=== PATIENT | female | born 1990 | race Caucasian/White ===

== ENCOUNTER → 2017-09-29 15:14 | Observation (INO) ==
--- NOTE | 2017-09-29 14:18 | OB/GYN Progress Note ---
Date of Encounter: 09/29/17 Time of Encounter: 14:49 - Assessment and Plan (1) 34 weeks gestation of Current Visit: Yes Status: Acute (2) Fall from chair Current Visit: Yes Status: Acute Pt reports good FM. No leaking, bleeding, or contractions. NST reactive >4 hours s/p fall. Precautions given. Discharge home. Qualifiers: Encounter type: initial encounter Qualified Code(s): W07.XXXA - Fall from chair, initial encounter Subjective - Subjective Principal diagnosis: fall during Interval history: Patient is a 27 y/o female at 34+4 weeks presented to L&D for a fall during . is uncomplicated. Patient previously followed by Dr. Merino and currently followed by the midwives. She reports she fell out of a chair at about 1030 this am and landed on her right hip. During the fall she tried to catch herself by grabbing a desk and caused the desk to fall on her. She reports that she caught the desk before it hit her. Currently she has some discomfort at her tailbone. No contractions, leaking, or bleeding. PNL: Blood type A+, RPR neg, RNI, HBsAg neg, HIV neg, Antepartum ROS: movement normal, no loss of fluid, no vaginal bleeding, no contractions Objective - Vital Signs Vital Signs: Intake and Output 09/28/17 09/29/17 09/29/17 23:59 07:59 15:59 Other: Weight 59.6 kg Patient Weight 09/29/17 23:59 Weight 59.6 kg - Exam FHR: category 1 FHR comments: FHR baseline = 130, Accelerations present, NST reactive Auscultation: bilateral: normal Abdomen: Present: soft, gravid Uterus: Present: normal
[2017-09-29 14:59] LABS: Amphetamine Screen,Urine Negative ng/mL (Cutoff=1000); Barbiturate Screen,Urine Negative ng/mL (Cutoff=200); Benzodiazepines Screen,Urine Negative ng/mL (Cutoff=200); Cannabinoid Screen,Urine Negative ng/mL (Cutoff = 50); Cocaine Screen,Urine Negative ng/mL (Cutoff= 300); Opiate Screen,Urine Negative ng/mL (Cutoff=300); Phencyclidine Screen,Urine Negative ng/mL (Cutoff=25)
== END | disposition home or self-care (01) ==
LOC: 1NENULAB
PROVIDERS: ADMIT Obstetrics & Gynecology; ATTEND Obstetrics & Gynecology

== ENCOUNTER 2017-10-31 10:45 | Observation (INO) ==
[2017-10-31 11:33] LABS: Basophils % 0.2 %; Eosinophils % 0.5 %; Hematocrit 39.5 % (35.3-44.9); Hemoglobin 12.3 g/dL (11.5-15.4); Immature Granulocytes % 0.3 % (0-4); Lymphocytes # 1.6 K/mcL (0.6-4.6); Lymphocytes % 18.2 %; Mean Corpuscular HGB Conc 31.1 g/dL (31.6-35.5); Mean Corpuscular Hemoglobin 26.3 pg (28.0-33.3); Mean Corpuscular Volume 84.6 fL (83.0-100.0); Mean Platelet Volume 11.1 fL (9.4-12.4); Monocytes # 0.6 K/mcL (0.0-1.3); Monocytes % 6.9 %; Neutrophils # 6.4 K/mcL (1.6-8.9); Platelet Count 190 K/mcL (140-400); Red Blood Count 4.67 M/mcL (3.82-4.97); Red Cell Distribution Width 16.7 % (11.5-14.5); Segmented Neutrophils % 73.9 %
[2017-10-31 11:34] LABS: Amphetamine Screen,Urine Negative ng/mL (Cutoff=1000); Barbiturate Screen,Urine Negative ng/mL (Cutoff=200); Benzodiazepines Screen,Urine Negative ng/mL (Cutoff=200); Cannabinoid Screen,Urine Negative ng/mL (Cutoff = 50); Cocaine Screen,Urine Negative ng/mL (Cutoff= 300); Opiate Screen,Urine Negative ng/mL (Cutoff=300); Phencyclidine Screen,Urine Negative ng/mL (Cutoff=25)
--- NOTE | 2017-10-31 11:40 | OB/GYN Progress Note ---
Date of Encounter: 10/31/17 Time of Encounter: 12:00 - Assessment and Plan (1) Headache in , antepartum Current Visit: Yes Status: Acute Plan: - PIH labs negative - BP wnl - Tylenol given for headache. Headache resolved. - Pre-eclampsia signs and symptoms discussed with patient and advised to come back if headache returns and unrelieved by Tylenol. - Pt safe for discharge home, with labor and PIH precautions, when to return to triage or call provider. Pt verbalizes understanding. (2) 39 weeks gestation of Current Visit: Yes Status: Acute (3) NST (non-stress test) reactive Current Visit: Yes Status: Acute Subjective - Subjective Principal diagnosis: headache, pedal edema Interval history: Patient is a 27-year-old female at 39+1 weeks presented to labor and delivery from the office with a headache, pedal edema, and brisk reflexes. Patient states that headache has been present for 2 days and has not relented with Tylenol. Currently her headache is not that bad. Patient admits to dizziness and nausea yesterday but currently denies vision changes, nausea, or dizziness. Patient has not had elevated blood pressures. Patient's is uncomplicated. Reports active movement. Denies vaginal bleeding, loss of fluid, contractions. Antepartum ROS: new complaints, movement normal, no loss of fluid, no vaginal bleeding, no contractions Objective - Vital Signs Vital Signs: sytolic BP 128, HR 107 Intake and Output 10/30/17 10/31/17 10/31/17 23:59 07:59 15:59 Other: Weight 64.6 kg Patient Weight 10/31/17 23:59 Weight 64.6 kg - Exam FHR: category 1 FHR comments: FHR baseline = 140, accelerations Auscultation: bilateral: normal Abdomen: Present: normal appearance, soft Uterus: Present: normal Comments: reflexes: patellar +2/4 right, +3/4 left. achilles +2/4 bilaterally extremities: pedal edema - Labs Labs: Abnormal lab results MCH 26.3 pg (28.0-33.3) L 10/31/17 11:17 MCHC 31.1 g/dL (31.6-35.5) L 10/31/17 11:17 RDW 16.7 % (11.5-14.5) H 10/31/17 11:17
[2017-10-31 11:43] LABS: Alanine Aminotransferase 10 Units/L (7-52); Aspartate Amino Transferase 18 Units/L (13-39); BUN/Creatinine Ratio 14 (6-26); Blood Urea Nitrogen 6 mg/dL (6-20); Lactate Dehydrogenase 151 Units/L (140-271); Uric Acid 4.4 mg/dL (2.3-7.6); eGFR For African Americans > 60 (> 60); eGFR For Non-African Americans > 60 (> 60)
[2017-10-31 11:46] LABS: Creatinine,Urine 180 mg/dL; Protein/Creatinine Ratio,Urine 0.15 mg/mg (0.00-0.20)
[2017-10-31] MEDS ORDERED: Acetaminophen 325 MG TABLET PO ONE (12:20)
== END 2017-10-31 17:43 | disposition home or self-care (01) ==
LOC: 1NENULAB
PROVIDERS: ADMIT Obstetrics & Gynecology; ATTEND Obstetrics & Gynecology

== ENCOUNTER 2017-11-01 10:22 | Inpatient (IN) ==
[2017-11-01 10:53] LABS: Basophils % 0.3 %; Eosinophils # 0.1 K/mcL (0.0-0.6); Eosinophils % 0.6 %; Hematocrit 40.5 % (35.3-44.9); Hemoglobin 12.6 g/dL (11.5-15.4); Immature Granulocytes % 0.3 % (0-4); Lymphocytes # 1.6 K/mcL (0.6-4.6); Lymphocytes % 19.8 %; Mean Corpuscular HGB Conc 31.1 g/dL (31.6-35.5); Mean Corpuscular Volume 83.7 fL (83.0-100.0); Monocytes # 0.5 K/mcL (0.0-1.3); Monocytes % 6.4 %; Neutrophils # 5.7 K/mcL (1.6-8.9); Platelet Count 201 K/mcL (140-400); Red Blood Count 4.84 M/mcL (3.82-4.97); Red Cell Distribution Width 17.1 % (11.5-14.5); Segmented Neutrophils % 72.6 %
[2017-11-01 11:01] LABS: Amphetamine Screen,Urine Negative ng/mL (Cutoff=1000); Barbiturate Screen,Urine Negative ng/mL (Cutoff=200); Benzodiazepines Screen,Urine Negative ng/mL (Cutoff=200); Cannabinoid Screen,Urine Negative ng/mL (Cutoff = 50); Cocaine Screen,Urine Negative ng/mL (Cutoff= 300); Opiate Screen,Urine Negative ng/mL (Cutoff=300); Phencyclidine Screen,Urine Negative ng/mL (Cutoff=25)
[2017-11-01 11:15] LABS: Alanine Aminotransferase 10 Units/L (7-52); Aspartate Amino Transferase 21 Units/L (13-39); BUN/Creatinine Ratio 13 (6-26); Blood Urea Nitrogen 7 mg/dL (6-20); Lactate Dehydrogenase 161 Units/L (140-271); Uric Acid 5.5 mg/dL (2.3-7.6); eGFR For African Americans > 60 (> 60); eGFR For Non-African Americans > 60 (> 60)
--- NOTE | 2017-11-01 11:22 | OB/GYN History & Physical ---
Date of Encounter: 11/01/17 Time of Encounter: 11:22 Assessment and Plan (1) Elevated blood pressure affecting in third trimester, antepartum Current visit: Yes Status: Acute Plan: - due to elevated diastolic BP, headache, and worsening edema with patient at 39 weeks, patient indicated for induction of labor - - PIH labs negative - expectant management for induction of labor. Begin with howell. - epidural when patient ready - reactive NST - anticipate (2) 39 weeks gestation of Current visit: No Status: Acute (3) NST (non-stress test) reactive Current visit: No Status: Acute FHR baseline= 160 (4) Headache in , antepartum Current visit: No Status: Acute headache initially 5/10, currently 2-3/10 History of Present Illness Chief complaint: elevated BP and headache HPI: Ms. Avila is a 27 year old female at 39+2 weeks presented to labor and delivery for elevated BP and headache. Patient came into triage yesterday from for headache, elevated BP, and brisk reflexes in the office. PIH labs were done and negative. Patient's headache resolved with Tylenol yesterday. Patients headache returned this morning and was a 5/10 when she came in. She admits to associated nasuea, and dizziness but no blurred vision.Patient's is uncomplicated. Reports active movement. Patient denies vaginal bleeding, contractions, leakage of fluids. Patient follows up with midwives. PNL: Blood type A+ GBS neg, RI, HBsAG neg, HIV neg. RPR neg. Past Med Surg Social Fam HX - Past Medical History Medical history: other (celiac disease) Psychiatric history: anxiety, depression - Past Surgical History Surgical History: other (tonsils and adenoids, lasix ) - Social History Smoking Status: Never smoker Smokeless Tobacco Status: No Alcohol use: none Drug use: none - Family History Mother Adopted: No Living Status: Still Living Hx Family Cardiac Disorders: Yes (Hypertension, Pre E) Hx Family Respiratory Disorders: No Hx Family Cancer: No Hx Family GI Disorders: No Hx Family Genitourinary Disorders: No Hx Family Endocrine Disorder: No Hx Family Musculoskeletal Disorders: No Hx Family Neuromuscular Disorders: No Hx Family Neurologic Disorders: No Hx Family HEENT Disorders: No Hx Family Autoimmune Disorders: No Hx Family Reproductive Disorders: No Hx Family Psychosocial Disorders: No Hx Family Medical Disorders: No Father Hx Family Respiratory Disorders: Yes (alpha 1 antitripsin carrier) Obstetrical History - Pregnancies : 1 Para: 0 Term: 0 : 0 Ab's: 0 Livin - History/Complications History/Complications: none Medications and Allergies Ferrous Sulfate [Iron] 325 mg PO DAILY 09/29/17 [History] Vit/Iron Fumarate/FA [ Tablet] 1 each PO DAILY 09/29/17 [ History] 3 Allergy/AdvReac Type Severity Reaction Status Date / Time citalopram [From Celexa] Allergy Shakiness Verified 11/01/17 10:54 gluten Allergy Diarrhea Verified 11/01/17 10:54 Review of System OB All systems PM: reviewed and no additional remarkable complaints except as stated Exam - Constitutional Constitutional: well developed, well nourished - HEENT HEENT: EOMI, Normocephaly - Lungs Respiratory exam: CTAB - Cardiovascular Cardiovascular exam: RRR - Abdomen Abdomen: Present: non tender - Extremities Extremities exam: pedal edema Deep Tendon Reflex Grade: 3+ Normal But Brisk (patellar right 2/4, patellar left 3/4, no clonus) - Vulva Vulva: bilateral: normal (per nursing) - Vagina Vagina: Present: normal moisture - Cervix Dilation: 2 (per nursing) Effacement: 80 Station: -1 - Uterus Uterus exam: Present: normal size - Comments Comments: I examined this patient and my medical decision-making was reviewed with the Resident Physician. I agree with the documented findings, disposition and treatment plan as described except to the extent set forth below. MILLI Lim Results Result Diagrams: 11/01/17 10:49 11/01/17 10:49 Abnormal lab results MCH 26.0 pg (28.0-33.3) L 11/01/17 10:49 MCHC 31.1 g/dL (31.6-35.5) L 11/01/17 10:49 RDW 17.1 % (11.5-14.5) H 11/01/17 10:49 Creatinine 0.52 mg/dL (0.60-1.20) L 11/01/17 10:49 All other labs normal. - VTE Reasons for not Prescribing Prophylaxis: Treatment not Indicated - Low risk for VTE
[2017-11-01] MEDS ORDERED: Naloxone 0.4 MG/ML INJ IVP PRN (11:23)
[2017-11-01] MEDS ORDERED: *HR* Nalbuphine 20 MG/ML AMPUL IVP PRN (11:23)
[2017-11-01] MEDS ORDERED: Famotidine 20 MG/2 ML VIAL IVP PRN (11:23)
[2017-11-01] MEDS ORDERED: miSOPROStol 100 MCG TABLET PO ONE (11:30)
--- NOTE | 2017-11-01 11:34 | Anesthesia Evaluation PreOp ---
Date of Encounter: 11/01/17 Time of Encounter: 11:28 - Past History Planned Operation: vaginal del, , G1 PIH induction 39wk+ Cardiac History: HTN (mild elevated, no treatment given, c/o PATEL x2 days) Other Medical History: Other (celiac disease) Anesthesia History: No Prior Anesthetic Complications, Past Anesthesia : Yes Alcohol Use: none Drug use: none Medications and Allergies Ferrous Sulfate [Iron] 325 mg PO DAILY 09/29/17 [History] Vit/Iron Fumarate/FA [ Tablet] 1 each PO DAILY 09/29/17 [ History] 3 Allergy/AdvReac Type Severity Reaction Status Date / Time citalopram [From Celexa] Allergy Shakiness Verified 11/01/17 10:54 gluten Allergy Diarrhea Verified 11/01/17 10:54 Anesthesia Results - Labs 11/01/17 10:49 11/01/17 10:49 Anesthesia Exam - HEENT Pupil (Motor): Pupils equal Mallampati: I Teeth: Normal, Missing (right lower post missing) Oral Opening: Greater than 3 - SAFETY EQUIPMENT TESTING SPECIALIST LOC: Oriented SAFETY EQUIPMENT TESTING SPECIALIST Motor: Normal RUE, Normal LUE, Normal RLE, Normal LLE, Normal Face SAFETY EQUIPMENT TESTING SPECIALIST Sensory: Normal: RUE, LUE, RLE, LLE, Face - Cardiac Rhythm: Regular Murmur: None - Pulmonary Breath Sounds: bilateral Clear Respiratory Effort: Symmetrical Anesthesia Assess/Plan ASA Score: 2 Modified Kendal Scale for Level of Consciousness: Cooperative, oriented, and tranquil Anesthetic Plan: General, Regional Monitoring Plan: Standard Monitors Recovery Plan: PACU
[2017-11-01 11:38] LABS: Creatinine,Urine 120 mg/dL; Protein/Creatinine Ratio,Urine 0.13 mg/mg (0.00-0.20)
--- NOTE | 2017-11-01 11:38 | OB Labor Progress Note ---
Date of Encounter: 11/01/17 Time of Encounter: 11:36 Labor Progress Note - Subjective Subjective: Patient resting in bed. Discussed POC with patient. Patient denies any questions or concerns. - Cervix Cervix: 1.5/80/-1 - Heart Tones Heart Tones: 135 bpm moderate variability +15x15 accels no decels noted. Cat. 1 tracing. - [place]: irregular - Interventions Interventions: SVE, Howell catheter inserted with 30cc sterile water in howell balloon. Patient tolerated well. - Plan Plan: Will give PO cytotec 50mcg po x1
[2017-11-01] MEDS: Ondansetron 4 MG/2 ML VIAL IVP PRN ×2 (13:03→18:01)
[2017-11-01] MEDS ORDERED: Epidural Premix (fent/bupiv) 110 ML EP ONE ×2 (13:05→23:00)
--- NOTE | 2017-11-01 16:36 | OB Labor Progress Note ---
Date of Encounter: 11/01/17 Time of Encounter: 16:34 Labor Progress Note - Subjective Subjective: Pt resting in bed, slightly uncomfortable with contractions. - Cervix Cervix: 3-4/90/-1 - Heart Tones Heart Tones: 130 bpm, moderate variability, + 15x15 accels, no decels. - [place]: 1-3 min - Interventions Interventions: SVE AROM for scant amount of clear fluid - Plan Plan: Continue labor management Place epidural at patient request Augment with Pitocin if needed. Anticipate
[2017-11-01] MEDS: Ringers Solution, Lactated 1,000 ML IVC SCH ×3 (16:40→23:26)
--- NOTE | 2017-11-01 17:35 | Anesthesia Procedures ---
Date of Encounter: 11/01/17 Time of Encounter: 16:54 Procedures: Anesthesia - Epidural/Spinal Patient ID/Chart reviewed: Yes Patient examined: Yes OB Eval: Gestational age: 39 OB Eval: : 1 OB Eval: Contractions: Non-stressed pattern Consent Obtained: Yes Supplemental Oxygen: None/Room Air Site Prep: Aseptic Technique, Sterile prep and drape, 0.5% Chlorhexidine/Alcohol Patient position: upright Local Anesthetic: Lidocaine 1% Amount of Local Anesthetic used: 2 Touhy Needle Gauge: 18 Touhy Needle Depth (cm): 6 Catheter Depth at Skin (cm): 10 Test Dose (1.5% Lido + Epi): Volume given (mls): 3 Test Dose Result: Negative Loading Dose: Other: 10ml from solution Loading Dose Administered: Thru Catheter Infusion Med: 0.125% Bupivacaine w/ 2 mcg/ml Fentanyl Infusion Rate (mls/hr): [address]: Tegaderm, Tape Interspace Used: L3-L4 Loss of Resistance ([place]): Yes (saline) Blood: Yes (upon threading 1st cath Heme, withdrawal 1cm with heme still, removed ) CSF: No Paresthesia: No Procedure: vss though out, FHR stable per RN's 1st cath heme, no test given d/t heme flow. reattemped one level above though same skin hole, bone. relocalized one level below, skin would not stretch one interspace below, to [place] with saline 2ml, cath placed without issue, neg test. taped in placed. lawrence well.
[2017-11-01] MEDS ORDERED: Oxytocin 20 units/ LR 1000 mL 20 UNIT/1,000 ML BAG IVC SCH (20:00)
[2017-11-01] MEDS ORDERED: Acetaminophen 325 MG TABLET PO ONE (22:54)
[2017-11-02] MEDS: ceFAZolin 1,000 MG in Water for inj. (sterile) 20 ML 10 ML IVPB SCH ×2 (02:50→11:07)
[2017-11-02] MEDS: Ondansetron 4 MG/2 ML VIAL IVP PRN ×2 (02:53→09:43)
[2017-11-02] MEDS ORDERED: Epidural Premix (fent/bupiv) 110 ML EP ONE ×2 (04:58→09:59)
[2017-11-02] MEDS ORDERED: Lidocaine/EPI 1:200k 2% PF 20 ML VIAL ONE (05:27)
[2017-11-02] MEDS ORDERED: Acetaminophen 325 MG TABLET PO PRN (06:42)
[2017-11-02] MEDS: Ringers Solution, Lactated 1,000 ML IVC SCH ×2 (06:55→20:37)
--- NOTE | 2017-11-02 07:08 | OB Labor Progress Note ---
Date of Encounter: 11/02/17 Time of Encounter: 07:06 Labor Progress Note - Cervix Cervix: 9.5/100/+1 - Heart Tones Heart Tones: 160 bpm moderate variability +15x15 accels prolonged decel noted - [place]: 1.5-2 min apart - Interventions Interventions: SVE, repositioned, IV bolus started - Plan Plan: Continue labor management
[2017-11-02] MEDS ORDERED: Methylergonovine 0.2 MG/ML AMPUL IM ONE (08:09)
--- NOTE | 2017-11-02 10:20 | OB Labor Progress Note ---
Date of Encounter: 11/02/17 Time of Encounter: 10:16 Labor Progress Note - Subjective Subjective: Pt reports good pain relief from epidural. Continues to feel vaginal pressure. - Cervix Cervix: 9.5(anterior lip)/100/+1 - Heart Tones Heart Tones: Baseline 130 Minimal variability with periods of moderate Accelerations present No decelerations - [place]: Contractions every 2.5-3 minutes Pitocin at 2mu/min Palpating strong - Interventions Interventions: Pitocin restarted - Plan Plan: 27 yo IUP at 39+3 weeks Active labor Fetus category II Plan: Anticipate Continue antibiotics Continue position changes with peanutball
--- NOTE | 2017-11-02 13:43 | OB Labor Progress Note ---
Date of Encounter: 11/02/17 Time of Encounter: 13:40 Labor Progress Note - Subjective Subjective: pt comfortable with epidural - Cervix Cervix: 9/100/0 - Heart Tones Heart Tones: 150/minimal/+accel with scalp stim/ early, lates earlier in hour - [place]: IUPC- inadequate pattern q2-5 - Plan Plan: Cervix unable to reduce with pushing. Minimal variablity continued. Pitocin turned off. Discussed with Dr. Caceres. Will allow to labor without pitocin, if no improvement in tracing will proceed with . Discussed plan with patient.
--- NOTE | 2017-11-02 14:12 | OB Labor Progress Note ---
Date of Encounter: 11/02/17 Time of Encounter: 14:10 Labor Progress Note - Plan Plan: Tracing has not improved now minimal to absent variability, Dr. Caceres notified. Will proceed with section at this time.
[2017-11-02] MEDS ORDERED: Metoclopramide 10 MG/2 ML VIAL IVP PRN ×2 (14:15→18:20)
[2017-11-02] MEDS ORDERED: Ringers Solution, Lactated 1,000 ML ONE (14:16)
[2017-11-02] MEDS ORDERED: Chloroprocaine/PF 20 ML VIAL INFILT ONE ×2 (14:16→14:52)
[2017-11-02] MEDS ORDERED: *HR* Oxytocin 10 UNIT/ML VIAL IM ONE (14:16)
[2017-11-02] MEDS ORDERED: Ondansetron 4 MG/2 ML VIAL ONE ×2 (14:24→15:14)
[2017-11-02] MEDS ORDERED: CefOXitin 2,000 MG VIAL ONE (14:37)
[2017-11-02] MEDS ORDERED: MetroNIDAZOLE 500 MG/100 ML 500 MG/100 ML BAG IVPB ONE (14:38)
[2017-11-02] MEDS ORDERED: cefOXitin 2,000 MG in 0.9 % Sodium Chloride Mini Bag 100 ML IVPB ONE (14:38)
[2017-11-02] MEDS ORDERED: Morphine Sulfate/PF 5mg/10mL Vial ONE (14:48)
[2017-11-02] MEDS ORDERED: *HR* Promethazine 25 MG/ML VIAL ONE (15:15)
[2017-11-02] MEDS ORDERED: Ondansetron 4 MG/2 ML VIAL IVP ONE (15:17)
[2017-11-02] MEDS ORDERED: *HR* Promethazine 25 MG/ML VIAL IVP PRN (15:17)
[2017-11-02] MEDS ORDERED: Acetaminophen IV 1,000 MG/100 ML INFUS..BTL IVPB ONE (15:17)
[2017-11-02] MEDS ORDERED: *HR* HYDROmorphone 2 MG TABLET PO PRN (15:17)
[2017-11-02] MEDS ORDERED: Water for inj. (sterile) 10 ML IV ONE (15:28)
--- NOTE | 2017-11-02 15:47 | OB/GYN Procedure Note ---
Section - Date of procedure: 11/02/17 Preop diagnosis: arrest of descent, arrest of dilation, category 2 FHT tracing, other malpresentation (OP), other (MSAF) Post-op diagnosis: same (Uterine atony) Procedure: section, primary low transverse Surgeon: Lexie Caceres Estimated blood loss (cc): 500 Was there an human resource assistant present: No Glost Tile Shader: Donavon Trujillo Anesthesia Type: Epidural section complications: uterine atony Disposition: L&D Recovery Room Specimens: Placenta, Cord segment - (s) A Delivery Date: 11/02/17 Infant Delivery Time: 14:57 Presentation: vertex Position: OP Route of delivery: other (Primary ) Gender: Female Viability: Viable Pounds: 7 Ounces: 9 at 1 minute: 4 at 5 minutes: 8 Placenta: spontaneous, uterine exploration Cord: 3 umbilical vessels - Narrative Narrative: The patient was taken to the operating room and prepped and draped in the usual sterile fashion. Timeout was completed. The patient was tested and found to have adequate anesthesia with her epidural with anesthesia in attendance. A Pfannenstiel skin incision was made and sharply dissected down to the fascia. The fascia was sharply incised with a scalpel in the midline and bluntly extended bilaterally. The rectus muscles were bluntly bisected and the peritoneum was bluntly entered. The incision was then bluntly extended. Bladder blade was placed protected bladder. Vesicouterine peritoneum was sharply incised with Metzenbaum scissors and extended sharply bilaterally. Bladder flap was created and the bladder blade was then placed to protect the bladder. A low transverse incision was then made with the scalpel down to the amnion and this is bluntly extended bilaterally. The amnion was then entered with Allis clamps. The was then delivered and bulb suctioned on the operating field. Cord was clamped and cut and the infant was handed to the nursery care team. Cord segment was obtained for gases, need for which would be determined later. Cord blood was obtained. The placenta was delivered spontaneous and intact. It was sent to be held by pathology. The uterine cavity was digitally inspected and noted to be free of any retained products of conception. The uterine cavity is wiped clean with a moist lap sponge. Clamps were placed on the uterine incision. The uterus is noted to be boggy and the patient was given medication as directed, by anesthesia to resolve the issue. The uterine incision was then closed using 0 Vicryl suture in a running locking fashion. This incision was then closed with a second 0 Vicryl suture in an imbricating fashion. Good hemostasis was noted. Tubes and ovaries were inspected and found to be grossly normal. The abdomen is irrigated copiously with sterile water. Peritoneal edges and rectus muscles were inspected and good hemostasis was again noted. The fascia was closed using an 0 PDS loop in a running nonlocking fashion. Subcutaneous tissue was irrigated with sterile water and hemostasis was achieved. The skin was closed with 4-0 Vicryl in a subcuticular fashion. Benzoin and Steri-Strips were applied to support the incision. All sponge and instrument counts are correct at the end of the procedure. [place] was noted to be draining clearing urine at the end of the procedure. Patient was taken to recovery room in stable condition.
[2017-11-02] MEDS ORDERED: *HR* OxyCODONE/APAP 5/325 TABLET PO PRN ×2 (17:08→18:20)
--- NOTE | 2017-11-02 17:09 | Anesthesia Evaluation Post Op ---
Date of Encounter: 11/02/17 Time of Encounter: 17:09 - Lungs Lungs: Clear Ascult./Percussion - Airway Airway: Non-obstructed - Cardiovascular Regular Rate, Baseline Rhythm - Mental Status Mental Status: Alert & Oriented, Answers Appropriately - Pain Pain Scale: 3 Pain Scale used: Numeric (1 - 10) - Nausea Vomiting Nausea Vomiting: Not Present - Hydration Hydration: NPO, Hastings catheter - Discharge PostOp Status: Transfer Patient to floor
[2017-11-02] MEDS ORDERED: Simethicone 80 MG TAB.CHEW PO PRN (18:20)
[2017-11-02] MEDS ORDERED: Ondansetron 4 MG/2 ML VIAL IVP PRN (18:20)
[2017-11-02] MEDS ORDERED: Oxytocin 20 units/ LR 1000 mL 20 UNIT/1,000 ML BAG IVC SCH (18:20)
[2017-11-02] MEDS ORDERED: Sennosides 8.6 MG TABLET PO PRN (18:20)
[2017-11-02] MEDS: Ibuprofen 600 MG TABLET PO SCH (20:36)
[2017-11-02] MEDS ORDERED: cefOXitin 2,000 MG in Water for inj. (sterile) 10 ML IVP SCH (23:00)
[2017-11-03] MEDS: Ibuprofen 600 MG TABLET PO SCH ×3 (04:48→21:39)
[2017-11-03 04:51] LABS: Basophils % 0.2 %; Eosinophils % 0.1 %; Hematocrit 35.3 % (35.3-44.9); Immature Granulocytes % 0.4 % (0-4); Lymphocytes # 1.3 K/mcL (0.6-4.6); Lymphocytes % 7.5 %; Mean Corpuscular HGB Conc 31.2 g/dL (31.6-35.5); Mean Corpuscular Hemoglobin 26.4 pg (28.0-33.3); Mean Corpuscular Volume 84.7 fL (83.0-100.0); Mean Platelet Volume 11.9 fL (9.4-12.4); Monocytes # 0.7 K/mcL (0.0-1.3); Monocytes % 4.2 %; Platelet Count 160 K/mcL (140-400); Red Blood Count 4.17 M/mcL (3.82-4.97); Red Cell Distribution Width 17.5 % (11.5-14.5); Segmented Neutrophils % 87.6 %
[2017-11-03 05:31] LABS: Neutrophils # 15.2 K/mcL (1.6-8.9)
[2017-11-03 05:39] LABS: Anisocytosis 1+ (Not Present); Microcytosis Present (Not Present); Platelet Estimate Normal (Normal); Toxic Granulation Present (Not Present)
[2017-11-03] MEDS ORDERED: 0.9 % Sodium Chloride 500 ML IVC ONE (06:13)
[2017-11-03] MEDS ORDERED: Ringers Solution, Lactated 1,000 ML ONE (07:45)
--- NOTE | 2017-11-03 09:32 | OB/GYN Progress Note ---
Date of Encounter: 11/03/17 Time of Encounter: 09:30 - Assessment and Plan (1) Elevated blood pressure affecting in third trimester, antepartum Current Visit: Yes Status: Acute Plan: - due to elevated diastolic BP, headache, and worsening edema with patient at 39 weeks, patient indicated for induction of labor - - PIH labs negative - expectant management for induction of labor. Begin with howell. - epidural when patient ready - reactive NST - anticipate (2) 39 weeks gestation of Current Visit: No Status: Acute (3) NST (non-stress test) reactive Current Visit: No Status: Acute FHR baseline= 160 (4) Headache in , antepartum Current Visit: No Status: Acute headache initially 5/10, currently 2-3/10 (5) Status post primary low transverse section Current Visit: Yes Status: Acute Continue routine postop/ care possible discharge home tomorrow (6) Breast feeding status of mother Current Visit: Yes Status: Acute continue support prn Subjective - Subjective Principal diagnosis: status post primary c/s Interval history: Patient day 1 postop primary c/s for failure to progress. Patient is doing well today. Howell catheter still in place draining clear yellow urine. Patient up ambulating with assistance. Lochia is moderate. Pain is well controlled. Patient reports: appetite normal, pain well controlled Carrie[place]: doing well, nursing well Objective - Vital Signs Latest vital signs: Vital Signs Temp Pulse Resp BP Pulse Ox 11/03/17 08:38 97.6 F 108 16 108/72 96 11/03/17 04:00 98.4 F 116 16 102/65 94 11/02/17 23:30 98.5 F 117 16 109/68 94 11/02/17 21:30 98.7 F 124 18 109/69 94 11/02/17 20:15 98.5 F 114 18 116/76 93 11/02/17 19:15 99.0 F 111 18 117/76 95 11/02/17 18:45 99.0 F 121 20 108/63 95 11/02/17 18:15 98.8 F 120 20 112/69 98 Intake and Output 11/02/17 11/03/17 11/03/17 23:59 07:59 15:59 Intake Total 1000 / 1000 Output Total 350 / 350 Balance -350 / -350 1000 / 1000 Intake: IV Fluids 1000 / 1000 Lactated Ringers 1,000 ML @ 125 990 / 990 mls/hr IVC .Q8H [facility] Rx#: [id number] Mefoxin 2,000 MG In Water for inj. (sterile) 10 ML @ 150 mls/ hr IVP Q8H [facility] Rx#:[id number] Output: Catheter 350 / 350 - Exam Lungs: bilateral: normal Chest: Normal S1, Normal S2 Extremities: Present: normal Abdomen: Present: normal appearance, soft Incision: Present: normal, dry, dressed (medipore dressing) Comments: 2+ edema noted bilateral lower extremities - Labs Labs: Laboratory Results - last 24 hr 11/03/17 04:14 WBC 17.4 H D RBC 4.17 Hgb 11.0 L D Hct 35.3 MCV 84.7 MCH 26.4 L MCHC 31.2 L RDW 17.5 H Plt Count 160 MPV 11.9 Immature Gran % 0.4 Seg Neutrophils % 87.6 Lymphocytes % 7.5 Monocytes % 4.2 Eosinophils % 0.1 Basophils % 0.2 Neutrophils # 15.2 H Lymphocytes # 1.3 Monocytes # 0.7 Eosinophils # 0.0 Basophils # 0.0 Toxic Granulation Present A Platelet Estimate Normal Anisocytosis 1+ A Microcytosis Present A
[2017-11-03] MEDS: Prenatal Vit/FA 1 EACH TABLET PO SCH (10:24)
[2017-11-03] MEDS: cefOXitin 2,000 MG in Water for inj. (sterile) 10 ML IVP SCH ×2 (12:20→21:37)
[2017-11-03] MEDS ORDERED: MetroNIDAZOLE 500 MG/100 ML 500 MG/100 ML BAG IVPB SCH ×2 (14:00)
[2017-11-03] MEDS: *HR* HYDROcodone/Acet 5/325 mg TABLET PO PRN (16:18)
[2017-11-03] MEDS: metroNIDAZOLE 500 MG TABLET PO SCH (21:39)
[2017-11-04] MEDS ORDERED: Acetaminophen 325 MG TABLET PO PRN (01:07)
[2017-11-04] MEDS: Ibuprofen 600 MG TABLET PO SCH ×3 (03:17→16:19)
[2017-11-04 04:44] LABS: Basophils % 0.2 %; Eosinophils # 0.1 K/mcL (0.0-0.6); Eosinophils % 0.5 %; Hematocrit 30.6 % (35.3-44.9); Hemoglobin 9.5 g/dL (11.5-15.4); Immature Granulocytes % 0.7 % (0-4); Lymphocytes # 1.1 K/mcL (0.6-4.6); Lymphocytes % 7.2 %; Mean Corpuscular Hemoglobin 26.2 pg (28.0-33.3); Mean Corpuscular Volume 84.5 fL (83.0-100.0); Mean Platelet Volume 11.1 fL (9.4-12.4); Monocytes # 0.5 K/mcL (0.0-1.3); Monocytes % 3.3 %; Neutrophils # 13.2 K/mcL (1.6-8.9); Platelet Count 180 K/mcL (140-400); Red Blood Count 3.62 M/mcL (3.82-4.97); Red Cell Distribution Width 17.7 % (11.5-14.5); Segmented Neutrophils % 88.1 %
[2017-11-04] MEDS: cefOXitin 2,000 MG in Water for inj. (sterile) 10 ML IVP SCH (07:13)
[2017-11-04 08:18] VITALS: BP 115/78
[2017-11-04] MEDS: metroNIDAZOLE 500 MG TABLET PO SCH (09:27)
[2017-11-04] MEDS: Prenatal Vit/FA 1 EACH TABLET PO SCH (09:27)
--- NOTE | 2017-11-04 09:43 | Discharge Summary ---
Date of Encounter: 11/04/17 Time of Encounter: 09:41 - Discharge Diagnosis (1) Anemia, Priority: Secondary Status: Acute (2) Breast feeding status of mother Priority: Secondary Status: Acute (3) Status post primary low transverse section Priority: Primary Status: Acute Comments: Pt reports she is feeling generally well and is ready to go home. However, she does report some mild, dizziness, PATEL, and SOB likely attributed to drop in Hgb. VSS Tolerating regular diet Ambulating without difficulty - encouraged increased ambulation to help with swelling Voiding and stooling without difficulty VSS Anticipate discharge today depending on repeat H&H this afternoon - Discharge Medications Prescriptions: Docusate [Colace] 100 mg PO BID #30 capsule Ferrous Sulfate 325 mg PO BID #60 tablet Ibuprofen [Motrin] 600 mg PO Q6H #60 tablet Home Medications: Vit/Iron Fumarate/FA [ Tablet] 1 each PO DAILY 09/29/17 [ History] Acetaminophen [Tylenol] 650 mg PO Q6HR PRN tablet 11/04/17 [Rx] Cephalexin [Keflex] 500 mg PO BID #10 capsule 11/04/17 [Rx] Docusate [Colace] 100 mg PO BID #30 capsule 11/04/17 [Rx] Ferrous Sulfate 325 mg PO BID #60 tablet 11/04/17 [Rx] Ibuprofen [Motrin] 600 mg PO Q6H #60 tablet 11/04/17 [Rx] Vit/FA 1 each PO DAILY tablet 11/04/17 [Rx] Simethicone [Gas-X] 80 mg PO TID PRN tab.chew 11/04/17 [Rx] metroNIDAZOLE [Flagyl] 500 mg PO BID #0 tablet 11/04/17 [Rx] metroNIDAZOLE [Flagyl] 500 mg PO BID #10 tablet 11/04/17 [Rx] Allergies/Adverse Reactions: 3 Allergy/AdvReac Type Severity Reaction Status Date / Time citalopram [From Celexa] Allergy Shakiness Verified 11/01/17 10:54 gluten Allergy Diarrhea Verified 11/01/17 10:54 Data Procedures and tests throughout hospitalization: Laboratory Tests 11/01/17 11/01/17 11/01/17 10:49 10:49 10:49 WBC 7.9 RBC 4.84 Hgb 12.6 Hct 40.5 MCV 83.7 MCH 26.0 L MCHC 31.1 L RDW 17.1 H Plt Count 201 MPV 11.0 Immature Gran % 0.3 Seg Neutrophils % 72.6 Lymphocytes % 19.8 Monocytes % 6.4 Eosinophils % 0.6 Basophils % 0.3 Neutrophils # 5.7 Lymphocytes # 1.6 Monocytes # 0.5 Eosinophils # 0.1 Basophils # 0.0 Toxic Granulation Platelet Estimate Anisocytosis Microcytosis BUN 7 Creatinine 0.52 L Est GFR ( Amer) > 60 Est GFR (Non-Af Amer) > 60 BUN/Creatinine Ratio 13 Uric Acid 5.5 AST 21 ALT 10 Lactate Dehydrogenase 161 Urine Creatinine 120 Protein/Creatinin Ratio 0.13 Urine Total Protein 16 Urine Opiates Screen Negative Ur Barbiturates Screen Negative Ur Phencyclidine Scrn Negative Ur Amphetamines Screen Negative U Benzodiazepines Scrn Negative Urine Cocaine Screen Negative U Marijuana (THC) Screen Negative 11/03/17 11/04/17 04:14 04:15 WBC 17.4 H D 14.9 H RBC 4.17 3.62 L Hgb 11.0 L D 9.5 L D Hct 35.3 30.6 L MCV 84.7 84.5 MCH 26.4 L 26.2 L MCHC 31.2 L 31.0 L RDW 17.5 H 17.7 H Plt Count 160 180 MPV 11.9 11.1 Immature Gran % 0.4 0.7 Seg Neutrophils % 87.6 88.1 Lymphocytes % 7.5 7.2 Monocytes % 4.2 3.3 Eosinophils % 0.1 0.5 Basophils % 0.2 0.2 Neutrophils # 15.2 H 13.2 H Lymphocytes # 1.3 1.1 Monocytes # 0.7 0.5 Eosinophils # 0.0 0.1 Basophils # 0.0 0.0 Toxic Granulation Present A Platelet Estimate Normal Anisocytosis 1+ A Microcytosis Present A BUN Creatinine Est GFR ( Amer) Est GFR (Non-Af Amer) BUN/Creatinine Ratio Uric Acid AST ALT Lactate Dehydrogenase Urine Creatinine Protein/Creatinin Ratio Urine Total Protein Urine Opiates Screen Ur Barbiturates Screen Ur Phencyclidine Scrn Ur Amphetamines Screen U Benzodiazepines Scrn Urine Cocaine Screen U Marijuana (THC) Screen Labs on day of discharge: Labs from last 24 hours 11/04/17 04:15 WBC 14.9 H RBC 3.62 L Hgb 9.5 L D Hct 30.6 L MCV 84.5 MCH 26.2 L MCHC 31.0 L RDW 17.7 H Plt Count 180 MPV 11.1 Immature Gran % 0.7 Seg Neutrophils % 88.1 Lymphocytes % 7.2 Monocytes % 3.3 Eosinophils % 0.5 Basophils % 0.2 Neutrophils # 13.2 H Lymphocytes # 1.1 Monocytes # 0.5 Eosinophils # 0.1 Basophils # 0.0 Date of admission: 11/01/17 10:22 Primary care physician: Emerald Spears, Discharging clinician: Megan Starr Anticipated date of discharge: 11/04/17 (Pending repeat H&H) - Patient Status Disposition: Home, Self-Care Condition: Good Functional capacity at discharge: independent ambulation Overall status at discharge: patient is progressing back to baseline - Discharge Instructions Follow Up With: Emerald Spears CNP [Primary Care Provider] - Lexie Caceres MD [Partnered Physician] - - Diet and Activity Activity: increase activity as tolerated Diet: regular diet Hospital Course Reason for admission: IUP at term Delivery: section Episiotomy: none Laceration: none Other procedures: none complications: uterine atony Discharge diagnosis: IUP at term delivered baby: female Time Attestation: Total time spent providing and/or coordinating discharge services: Time Spent: Less than 30 minutes - VTE Reasons for not Prescribing Prophylaxis: Treatment not Indicated - Low risk for VTE Documentation of Mechanical Device: Intermittent pneumatic compression device Exam - Constitutional Vitals: Temp Pulse Resp BP Pulse Ox 98.4 F 101 16 115/78 98 11/04/17 07:30 11/04/17 07:30 11/04/17 09:00 11/04/17 07:30 11/04/17 04:30 General appearance IM: A&O X 3 - Respiratory Respiratory exam: Present: CTAB - Cardiovascular Cardiovascular exam IM: Present: RRR, +S1, +S2 - GI/Abdominal GI/Abdominal exam IM: normal bowel sounds, soft Incision: normal, dry, intact - Rectal Rectal exam: deferred - Uterine Tone: Firm Uterus Position: 1 Finger Below Umbilicus - Extremities Exam Extremities exam IM: Present: pedal edema - Neurological Exam Neurological exam: alert, oriented X3 - Psychiatric Additional comments: Pt reports she is feeling well and in good spirits. Reports a history of anxiety before she got and would like a prescription in case she needs it. We discussed waiting until her appointment to start medication and she verbalized that this was ok. I also gave her instructions to call the office before then if she felt like her symptoms were returning. She verbalized that she would do this.
[2017-11-04 14:28] LABS: Hematocrit 32.4 % (35.3-44.9); Hemoglobin 9.8 g/dL (11.5-15.4)
[2017-11-04] MEDS: *HR* HYDROcodone/Acet 5/325 mg TABLET PO PRN (16:19)
== END 2017-11-04 19:00 | disposition home or self-care (01) | DRG 766 ==
LOC: 1NENULAB → OBSVTOIN 10:22 → 1NENUOBS 11-02 18:17
PROVIDERS: ADMIT Obstetrics & Gynecology; ATTEND Obstetrics & Gynecology